=== PATIENT | male | born 1960 | race African-American/Black ===

== ENCOUNTER 2017-08-11 15:57 | Emergency (ER) | payer MEDICAID ==
[~2017-08-11] VITALS: Ht 185.4 cm; Wt 61.0 kg
[2017-08-11 16:00] VITALS: BP 112/73
== END 2017-08-11 17:38 | disposition left against medical advice (07) ==
LOC: ER 16:18
DX: S01.01XA Laceration without foreign body of scalp, initial encounter (principal); X99.1XXA Assault by knife, initial encounter; Y93.9 Activity, unspecified; Y92.9 Unspecified place or not applicable; Z53.21 Procedure and treatment not carried out due to patient leaving prior to being seen by health care provider

== ENCOUNTER 2017-10-09 16:17 | Emergency (ER) | payer OTHER, MEDICAID ==
[~2017-10-09] VITALS: Ht 182.9 cm; Wt 75.0 kg
[2017-10-09] MEDS ORDERED: AMLO2.5T45 PO (16:21)
[2017-10-09] MEDS ORDERED: ACETAMINOPHEN 325MG TABLET PO ONE (21:45)
[2017-10-09 22:08] LABS: CHLORIDE 109 mEq/L (98-107)
[2017-10-09] MEDS ORDERED: KETOROLAC 30MG/ML VIAL IV ONE (22:30)
[2017-10-09] MEDS ORDERED: METOCLOPRAMIDE HCL 10MG/2ML VIAL IV ONE (22:30)
[2017-10-09] MEDS ORDERED: SODIUM CHLORIDE 0.9% 1,000 ML IV ONE (22:30)
[2017-10-10 00:56] VITALS: BP 136/66
== END 2017-10-10 01:20 | disposition home or self-care (01) ==
LOC: ER 16:53
DX: R51 Headache (principal); M79.89 Other specified soft tissue disorders; F31.9 Bipolar disorder, unspecified; F10.20 Alcohol dependence, uncomplicated; I10 Essential (primary) hypertension; F14.10 Cocaine abuse, uncomplicated; Y90.0 Blood alcohol level of less than 20 mg/100 ml
CPT/HCPCS: 36415; 80048; 80307; 96361; 96374; 96375; 99285; G0482; J1885; J2765; J7030; Z7610

== ENCOUNTER 2018-10-18 02:11 | Emergency (ER) | payer MEDICAID, OTHER ==
[~2018-10-18] VITALS: Ht 180.3 cm; Wt 77.0 kg
[~2018-10-18 02:11] MED LIST: AMLO2.5T45 PO
[2018-10-18 02:49] LABS: HEMATOCRIT. 42.9 % (42.0-52.0); HEMOGLOBIN. 14.1 g/dL (14.0-18.0); MEAN CORPUSCULAR HEMOGLOBIN 30.8 pg (28.0-32.0); MEAN CORPUSCULAR VOLUME 93.8 fL (80.0-94.0); MEAN PLATELET VOLUME 7.8 fl (7.4-10.4); PLATELET 256 x1000/uL (130-400); RED BLOOD CELL COUNT 4.57 mill/uL (4.7-6.1); RED CELL DISTRIBUTION WIDTH 14.4 % (11.6-14.6)
[2018-10-18 02:56] LABS: CHLORIDE 108 mEq/L (98-107)
[2018-10-18 02:59] LABS: ETHANOL BLOOD < 10 mg/dL
[2018-10-18 03:48] LABS: ATYPICAL LYMPHOCYTES 2; PLATELET ESTIMATE NORMAL
[2018-10-18 04:59] LABS: CLARITY URINE CLEAR (CLEAR); COLOR URINE YELLOW (YELLOW); KETONES URINE NEGATIVE (NEGATIVE); LEUKOCYTE ESTERASE URINE NEGATIVE (NEGATIVE); NITRITE URINE NEGATIVE (NEGATIVE); OCCULT BLOOD URINE 3+ (NEGATIVE); PROTEIN URINE NEGATIVE (NEGATIVE); SPECIFIC GRAVITY URINE 1.013 (1.005-1.030); UROBILINOGEN URINE 0.2 E.U./dL (0.2-1.0)
[2018-10-18 05:25] LABS: *AMPHETAMINES SCREEN URINE NEGATIVE (NEGATIVE)
[2018-10-18 05:26] LABS: *BARBITURATES SCREEN URINE NEGATIVE (NEGATIVE); *BENZODIAZEPINES SCREEN URINE NEGATIVE (NEGATIVE); *COCAINE SCREEN URINE PRESUMTIVE POSITIVE (NEGATIVE); METHADONE URINE SCREEN NEGATIVE (NEGATIVE); OPIATES URINE SCREEN NEGATIVE (NEGATIVE)
[2018-10-18 05:27] LABS: CANNABINOID URINE SCREEN NEGATIVE (NEGATIVE); PHENCYCLIDINE URINE SCREEN NEGATIVE (NEGATIVE)
[2018-10-18 11:00] VITALS: BP 109/82
== END 2018-10-18 11:29 | disposition home or self-care (01) ==
LOC: ER 02:11
DX: R45.851 Suicidal ideations (principal); F20.9 Schizophrenia, unspecified; F31.9 Bipolar disorder, unspecified; F14.10 Cocaine abuse, uncomplicated; I10 Essential (primary) hypertension; F17.210 Nicotine dependence, cigarettes, uncomplicated; F10.21 Alcohol dependence, in remission
CPT/HCPCS: 36415; 80048; 80305; 80307; 80320; 80329; 81003; 85025; 99285; Z7610; G0480